=== PATIENT | male | born 1985 | race African-American/Black ===

== ENCOUNTER 2022-01-31 19:16 | Emergency (ER) | payer BC, SELFPAY ==
--- NOTE | ~2022-01-31 | CT_ITS ---
EXAMINATION: CT brain wo con DATE: 01/31/2022 21:23 INDICATION: New onset severe headache TECHNIQUE: Computed tomography (CT) of the head was performed without intravenous contrast. Sagittal and coronal reconstructions were performed. The mA was adjusted according to patient size. Iterative reconstruction technique was employed. The dose-length product was 605.33 mGy-cm. COMPARISON: None FINDINGS: No acute intracranial hemorrhage, acute infarction or abnormal extra axial fluid collection. Ventricl es are normal and symmetric. No mass/mass effect. The orbits, paranasal sinuses and mastoid air cells are normal. IMPRESSION: 1. Normal head CT. Reviewed, dictated and finalized at location A. IMPRESSION: 1. Normal head CT.
[2022-01-31 19:31] VITALS: BP 154/91; PULSE 106; RESP 18; TEMP 36.1; O2SAT 98
--- NOTE | 2022-01-31 20:02 | ED.HA ---
HPI - Headache General Chief Complaint: Headache Stated Complaint: migraine for last few days Time Seen by Provider: 01/31/22 19:51 History of Present Illness HPI Narrative: Patient is a 36-year-old male here for evaluation of a headache over the past 2 days. Patient states the headache is dull and aching in nature and is present across his frontal region. Came on at rest, not associated with exertion. Did not have instantly peaking pain. No loss of consciousness. It is associated with photophobia. He has attempted ibuprofen and Excedrin Migraine without significant relief of his headache. He does have a history of migraines but he states this feels different. Patient reports some nausea but no vomiting, diarrhea, or abdominal pain. His fianc?e does have COVID; he has not tested himself yet. Denies any neck pain, fevers, chills, cough, shortness of breath, unilateral weakness, visual changes. Related Data Allergies Allergy/AdvReac Type Severity Reaction Status Date / Time No Known Allergies Allergy Verified 01/31/22 19:30 Review of Systems Review of Systems: Gen.: Denies fevers or chills Eyes: Denies eye pain or visual change ENT: Denies congestion Respiratory: Denies shortness of breath or cough CV: Denies chest pain or palpitations GI: Reports nausea. Denies abdominal pain, emesis or diarrhea : denies burning, urgency, frequency or hematuria Musculoskeletal: Denies back pain or muscle pain Neuro: Reports headache. Skin: Denies rash Except as documented, all other systems reviewed and negative Exam Narrative: APPEARANCE: Well appearing, no pain in distress, well-nourished. Head: Normocephalic and atraumatic. EYES: PERRLA/EOMI, conjunctivae clear NOSE: No nasal drainage EARS: External ear normal in appearance THROAT: Oropharynx is clear. Mucous membranes are moist. NECK: Full range of motion in neck. Supple. No adenopathy, no masses. RESPIRATORY: Airway patent, respirations nonlabored. Clear to auscultation bilaterally, no rales, rhonchi, wheezing. CARDIOVASCULAR: Regular rate and rhythm without murmurs, rubs, or gallops. ABDOMINAL: Normoactive bowel sounds. Soft, nontender, nondistended. No rebound tenderness or guarding. MUSCULOSKELETAL: Extremities are warm and well-perfused. Moves all extremities well. No edema. NEURO: [id number] normal. Cranial nerves II through XII intact. Romberg negative. Normal gait. 5 out of 5 strength in bilateral upper and lower extremities. Normal speech. SKIN: Skin is warm and dry. No rashes. PSYCHIATRIC: Normal affect/mood. Course Vital Signs Vital signs: Vital Signs Temperature 97.0 F L 01/31/22 19:31 Pulse Rate 106 H 01/31/22 19:31 Respiratory Rate 18 01/31/22 19:31 Blood Pressure 154/91 H 01/31/22 19:31 Pulse Oximetry 98 01/31/22 19:31 Temperature 97.0 F L 01/31/22 19:31 Pulse Rate 93 01/31/22 23:19 Respiratory Rate 16 01/31/22 23:19 Blood Pressure 141/74 H 01/31/22 23:19 Pulse Oximetry 97 01/31/22 23:19 MDM - Headache MDM Narrative Medical decision making narrative: 36-year-old male here for evaluation of a frontal headache for the past 3 days. Here he is nontoxic-appearing with normal vital signs. Patient has a slight leukocytosis to 11.0, labs otherwise unremarkable. COVID is negative. Head CT is negative. This patient presents with a headache most consistent with benign headache from either tension type headache vs migraine. No headache red flags. Neurologic exam without evidence of meningismus, AMS, focal neurologic findings so doubt meningitis, encephalitis, stroke. Presentation not consistent with acute intracranial bleed to include SAH (lack of risk factors, headache history). No history of trauma so doubt ICH. Given history and physical temporal arteritis unlikely, as is acute angle closure glaucoma. Doubt carotid artery dissection given no focal neuro deficits, no neck trauma or recent neck strain. Patient with no signs of
[2022-01-31] MEDS: PROCHLORPERAZINE EDISYLATE 10 MG/2 ML VIAL IV PUSH (20:21)
[2022-01-31] MEDS: diphenhydrAMINE HCl INJ 50 MG/ML VIAL 25 MG IV PUSH (20:21)
[2022-01-31] MEDS: SODIUM CHLORIDE 0.9% IV 1,000 ML 999 ML IV CONT (20:22)
[2022-01-31 20:33] LABS: Basophils Percent Auto 0.2 % (0.2-1.2); Eosinophils Percent Auto 0.1 % (0-4.4); Hematocrit 41.6 % (42.0-52.0); Hemoglobin 13.7 g/dL (14.0-18.0); Immature Granulocyte Absolute 0.05 K/mm3 (0.00-0.031); Immature Granulocyte Percent A 0.5 % (0-0.5); Lymphocytes Absolute Auto 1.43 K/mm3 (0.9-3.2); Lymphocytes Percent Auto 13.1 % (18.3-44.2); Mean Corpuscular HGB Conc 32.9 g/dl (32-36); Mean Corpuscular Hemoglobin 29.5 pg (26-34); Mean Corpuscular Volume 89.7 fl (80-100); Mean Platelet Volume 9.5 fl (7.4-10.4); Monocytes Absolute Auto 0.8 K/mm3 (0.1-0.6); Monocytes Percent Auto 6.8 % (2.6-8.5); Neutrophils Absolute Auto 8.7 K/mm3 (1.3-6.7); Neutrophils Percent Auto 79.3 % (45.5-73.1); Platelet Count Result 253 k/mm3 (150-375); Red Blood Count 4.64 M/mm3 (4.6-6.20); Red Cell Distribution Width 12.2 % (11.5-14.5)
[2022-01-31 20:41] LABS: Alanine Aminotransferase 26 U/L (6-50); Albumin Level 4.7 g/dL (3.5-5.1); Alkaline Phosphatase 58 U/L (38-126); Anion Gap 15 mmol/L (8-16); Aspartate Amino Transferase 25 U/L (17-59); Bilirubin,Total 0.9 mg/dL (0.2-1.3); Blood Urea Nitrogen 7 mg/dL (9-20); Calcium 9.1 mg/dL (8.4-10.2); Carbon Dioxide 27 mmol/L (22-30); Chloride 98 mmol/L (98-107); Estimated CRCL calculation 117 ml/min; Estimated Glomerular Filt Rate > 60; Glucose 126 mg/dL (65-110); Potassium 3.4 mmol/L (3.4-5.0); Sodium 140 mmol/L (137-145)
[2022-01-31 21:11] LABS: SARS-CoV-2 RNA PCR Negative
[2022-01-31] MEDS: KETOROLAC 15 MG/ML VIAL (*BKC) IV PUSH ×2 (21:39→22:38)
[2022-01-31] MEDS: ONDANSETRON INJ 4 MG/2 ML VIAL IV PUSH (22:36)
[2022-01-31 23:19] VITALS: BP 141/74; PULSE 93; RESP 16; O2SAT 97
== END 2022-01-31 23:20 | disposition home or self-care (01) ==
PROVIDERS: Physician Assistant; Emergency Provider Emergency Medicine
DX: G43.909 Migraine, unspecified, not intractable, without status migrainosus (principal); Z20.822 Contact with and (suspected) exposure to COVID-19
CPT/HCPCS: 36415; 70450; 80053; 85025; 96361; 96374; 96375; 99284; C9803; J0780; J1200; J1885; J2405; J7030; U0003; U0005

== ENCOUNTER 2022-02-01 08:29 | Emergency (ER) | payer BC, SELFPAY ==
[2022-02-01 08:33] VITALS: BP 166/97; PULSE 89; RESP 18; TEMP 36.7; O2SAT 98
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
[2022-02-01] MEDS: ONDANSETRON INJ 4 MG/2 ML VIAL 8 MG IV PUSH (09:00)
[2022-02-01] MEDS: MECLIZINE HCL 25 MG TABLET PO (09:01)
[2022-02-01] MEDS: diazePAM INJ (*CRX) 10 MG/2 ML SYRINGE 5 MG IV PUSH ×2 (09:01→10:02)
[2022-02-01] MEDS: SODIUM CHLORIDE 0.9% IV 1,000 ML 999 ML IV CONT (09:01)
[2022-02-01 09:03] LABS: Basophils Percent Auto 0.2 % (0.2-1.2); Eosinophils Percent Auto 0.1 % (0-4.4); Hematocrit 39.8 % (42.0-52.0); Hemoglobin 13.3 g/dL (14.0-18.0); Immature Granulocyte Absolute 0.03 K/mm3 (0.00-0.031); Immature Granulocyte Percent A 0.3 % (0-0.5); Lymphocytes Absolute Auto 2.23 K/mm3 (0.9-3.2); Mean Corpuscular HGB Conc 33.4 g/dl (32-36); Mean Corpuscular Hemoglobin 30.2 pg (26-34); Mean Corpuscular Volume 90.2 fl (80-100); Mean Platelet Volume 9.5 fl (7.4-10.4); Monocytes Absolute Auto 0.8 K/mm3 (0.1-0.6); Neutrophils Percent Auto 69.4 % (45.5-73.1); Platelet Count Result 254 k/mm3 (150-375); Red Blood Count 4.41 M/mm3 (4.6-6.20); Red Cell Distribution Width 12.5 % (11.5-14.5); White Blood Count 10.1 K/mm3 (4.5-10.0)
[2022-02-01 09:16] LABS: Alanine Aminotransferase 22 U/L (6-50); Albumin Level 4.4 g/dL (3.5-5.1); Alkaline Phosphatase 54 U/L (38-126); Anion Gap 14 mmol/L (8-16); Aspartate Amino Transferase 25 U/L (17-59); Blood Urea Nitrogen 7 mg/dL (9-20); Calcium 8.9 mg/dL (8.4-10.2); Carbon Dioxide 28 mmol/L (22-30); Chloride 100 mmol/L (98-107); Estimated Glomerular Filt Rate > 60; Glucose 123 mg/dL (65-110); Potassium 3.5 mmol/L (3.4-5.0); Sodium 142 mmol/L (137-145)
[2022-02-01] MEDS: KETOROLAC 30 MG/ML VIAL (*BKC) IV PUSH (10:01)
[2022-02-01 10:05] VITALS: BP 156/79; PULSE 80; RESP 18; O2SAT 97
== END 2022-02-01 11:10 | disposition home or self-care (01) ==
PROVIDERS: Emergency Provider Emergency Medicine
DX: R51.9 Headache, unspecified (principal)
CPT/HCPCS: 36415; 80053; 85025; 96361; 96374; 96375; 96376; 99284; A9270; J1885; J2405; J3360; J7030